=== PATIENT | male | born 1985 | race African-American/Black ===

== ENCOUNTER 2020-01-02 13:00 | Inpatient (IN) ==
[2020-01-02 14:25] LABS: ABS Eosinophils 0.2 10^3/ul (0-0.6); ABS Lymphocytes 3.1 10^3/ul (1.0-4.8); ABS Monocytes 1.1 10^3/ul (0-0.8); ABS Neutrophils 9.5 10^3/ul (1.5-7.7); Eosinophil % 1.2 %; Hematocrit 43 % (42-52); Hemoglobin 14.3 g/dL (14.0-18.0); Lymphocyte % 22.6 %; Mean Corpuscular HGB Conc 33 g/dL (31-36); Mean Corpuscular Hemoglobin 26 pg (27-31); Mean Corpuscular Volume 78 fL (80-94); Mean Platelet Volume 7.8 fL (7.4-10.4); Platelet Count 213 10^3/uL (150-450); Red Blood Count 5.48 10^6 /uL (4.18-5.48); Red Cell Distribution Width 15 % (10-15); White Blood Count 13.9 10^3/uL (3.5-10.8)
[2020-01-02 14:33] LABS: Urine Appearance Clear; Urine Bilirubin Negative (Negative); Urine Blood Negative (Negative); Urine Color Yellow; Urine Glucose Negative (Negative); Urine Ketones Negative (Negative); Urine Nitrite Negative (Negative); Urine Protein Negative (Negative); Urine Specific Gravity 1.004 (1.010-1.030); Urine Urobilinogen Negative (Negative)
[2020-01-02 14:53] LABS: ALT 20 U/L (7-52); AST 26 U/L (13-39); Albumin 4.9 g/dL (3.2-5.2); Albumin/Globulin Ratio 2.1 (1-3); Alkaline Phosphatase 51 U/L (34-104); Anion Gap 8 mmol/L (2-11); BUN/Creatinine Ratio 5.6 (8-20); Blood Urea Nitrogen 7 mg/dL (6-24); CO2 Carbon Dioxide 29 mmol/L (22-32); Calcium 10.3 mg/dL (8.6-10.3); Chloride 103 mmol/L (101-111); EGFR African American 81.2 (>60); EGFR Non-African American 67.1 (>60); Globulin 2.3 g/dL (2-4); Glucose 120 mg/dL (70-100); Potassium 3.7 mmol/L (3.5-5.0); Sodium 140 mmol/L (135-145); Total Protein 7.2 g/dL (6.4-8.9)
[2020-01-02 15:08] LABS: Urine Benzodiazepine Screen None Detected (None Detect); Urine Cannabinoids Screen None Detected (None Detect); Urine Opiates Screen None Detected (None Detect)
[2020-01-02 15:27] LABS: TSH Ultra Thyroid Stim Horm 2.87 mcIU/mL (0.34-5.60)
[2020-01-02 15:44] LABS: Acetaminophen < 15 mcg/mL; Alcohol, S < 10 mg/dL (<10); Salicylate < 2.50 mg/dL (<30)
[2020-01-02] MEDS ORDERED: Al Hydrox/Mg Hydrox/Simet LIQ 30 ML UDC PO PRN (16:55)
[2020-01-02] MEDS ORDERED: Albuterol HFA INHALER 8 gm MDI INH PRN (18:34)
[2020-01-03] MEDS ORDERED: Venlafaxine XR 75 mg PO SCH (09:00)
[2020-01-03] MEDS: Vitamin THERAPEUTIC TAB PO SCH (11:44)
[2020-01-03] MEDS: Venlafaxine XR 75 mg PO SCH (11:44)
[2020-01-03] MEDS: Nicotine GUM 4MG FRUIT FLAVOR PO PRN ×2 (17:55→20:34)
[2020-01-04] MEDS: Venlafaxine XR 75 mg PO SCH (08:48)
[2020-01-04] MEDS: Vitamin THERAPEUTIC TAB PO SCH (08:49)
[2020-01-04] MEDS: Nicotine GUM 4MG FRUIT FLAVOR PO PRN ×5 (08:51→18:24)
[2020-01-05] MEDS: Vitamin THERAPEUTIC TAB PO SCH (08:12)
[2020-01-05] MEDS: Venlafaxine XR 75 mg PO SCH (08:12)
[2020-01-05] MEDS: Nicotine GUM 4MG FRUIT FLAVOR PO PRN ×4 (08:14→16:06)
[2020-01-05 08:24] LABS: HDL Cholesterol 44.2 mg/dL
[2020-01-06] MEDS: Vitamin THERAPEUTIC TAB PO SCH (07:38)
[2020-01-06] MEDS: Venlafaxine XR 75 mg PO SCH (07:39)
[2020-01-06] MEDS: Nicotine GUM 4MG FRUIT FLAVOR PO PRN ×4 (07:40→21:03)
[2020-01-07] MEDS: Nicotine GUM 4MG FRUIT FLAVOR PO PRN ×3 (07:41→15:51)
[2020-01-07] MEDS: Vitamin THERAPEUTIC TAB PO SCH (08:47)
[2020-01-07] MEDS: Venlafaxine XR 75 mg PO SCH (08:48)
[2020-01-08] MEDS: Nicotine GUM 4MG FRUIT FLAVOR PO PRN ×5 (02:28→19:51)
[2020-01-08] MEDS: Vitamin THERAPEUTIC TAB PO SCH (08:17)
[2020-01-08] MEDS: Venlafaxine XR 75 mg PO SCH (08:18)
[2020-01-09 08:06] VITALS: BP 143/86
[2020-01-09] MEDS: Vitamin THERAPEUTIC TAB PO SCH (08:08)
[2020-01-09] MEDS: Venlafaxine XR 75 mg PO SCH (08:09)
[2020-01-09] MEDS: Nicotine GUM 4MG FRUIT FLAVOR PO PRN (09:06)
== END 2020-01-09 11:30 | disposition home or self-care (01) | DRG 750 ==
LOC: ED 13:00 → BSU 16:55
PROVIDERS: ADMIT Psychiatry & Neurology Psychiatry; ATTEND Psychiatry & Neurology Psychiatry

== ENCOUNTER 2022-01-20 16:45 | Inpatient (IN) ==
[2022-01-20] MEDS ORDERED: Dexamethasone IV 4 MG/ML VIAL 1 ml VIAL IV SLOW PU ONE (17:17)
[2022-01-20 17:32] LABS: ABS Eosinophils 0.4 10^3/ul (0-0.6); ABS Lymphocytes 3.6 10^3/ul (1.0-4.8); ABS Monocytes 1.1 10^3/ul (0-0.8); ABS Neutrophils 7.2 10^3/ul (1.5-7.7); Eosinophil % 3.2 %; Hematocrit 42 % (42-52); Hemoglobin 13.5 g/dL (14.0-18.0); Lymphocyte % 29.4 %; Mean Corpuscular HGB Conc 33 g/dL (31-36); Mean Corpuscular Hemoglobin 25 pg (27-31); Mean Corpuscular Volume 78 fL (80-94); Mean Platelet Volume 7.8 fL (7.4-10.4); Platelet Count 239 10^3/uL (150-450); Red Blood Count 5.36 10^6 /uL (4.18-5.48); Red Cell Distribution Width 16 % (10-15); White Blood Count 12.3 10^3/uL (3.5-10.8)
[2022-01-20 18:28] LABS: Albumin 4.4 g/dL (3.2-5.2); Calcium 9.6 mg/dL (8.6-10.3); Potassium 3.8 mmol/L (3.5-5.0); Total Bilirubin 0.5 mg/dL (0.2-1.0)
[2022-01-20 18:34] LABS: Albumin/Globulin Ratio 1.9 (1-3); Globulin 2.3 g/dL (2-4); Total Protein 6.7 g/dL (6.4-8.9); eGFR CKD-EPI 82.5 (>60)
[2022-01-20] MEDS ORDERED: CMCS: Venlafaxine 25 mg TAB (NF) PO SCH (21:00)
[2022-01-20] MEDS ORDERED: Famotidine IV 10 MG/ML 2 ml VIAL (20 mg) IV SLOW PU SCH (23:00)
[2022-01-20] MEDS: Dexamethasone IV 4 MG/ML VIAL 1 ml VIAL IV SLOW PU SCH (23:11)
[2022-01-21] MEDS: C1 Esterase Inhib (Human) 500 UNIT INJ IV ONE ×2 (02:43→03:06)
[2022-01-21 04:36] LABS: ABS Lymphocytes 0.8 10^3/ul (1.0-4.8); ABS Monocytes 0.2 10^3/ul (0-0.8); ABS Neutrophils 5.2 10^3/ul (1.5-7.7); Eosinophil % 0.2 %; Hematocrit 37 % (42-52); Lymphocyte % 13.5 %; Mean Corpuscular HGB Conc 32 g/dL (31-36); Mean Corpuscular Hemoglobin 25 pg (27-31); Mean Corpuscular Volume 77 fL (80-94); Mean Platelet Volume 7.6 fL (7.4-10.4); Nucleated Red Blood Cells % 0.1; Platelet Count 201 10^3/uL (150-450); Red Blood Count 4.88 10^6 /uL (4.18-5.48); Red Cell Distribution Width 15 % (10-15); White Blood Count 6.3 10^3/uL (3.5-10.8)
[2022-01-21 05:06] LABS: Calcium 9.4 mg/dL (8.6-10.3); Phosphorus 3.9 mg/dL (2.5-5.0); Potassium 4.5 mmol/L (3.5-5.0); eGFR CKD-EPI 100.7 (>60)
[2022-01-21] MEDS: Dexamethasone IV 4 MG/ML VIAL 1 ml VIAL IV SLOW PU SCH (05:14)
[2022-01-21] MEDS ORDERED: Dexamethasone IV 4 MG/ML VIAL 1 ml VIAL IV SLOW PU SCH (09:00)
[2022-01-21] MEDS ORDERED: Venlafaxine XR 75 mg PO SCH (09:00)
[2022-01-21 09:48] VITALS: BP 138/87
[2022-01-23 09:35] LABS: Complement C1q 13 mg/dL (12 - 22)
== END 2022-01-21 10:30 | disposition home or self-care (01) | DRG 811 ==
LOC: ED 16:45 → EDHOLD 18:17 → ICU 18:50
PROVIDERS: ADMIT Internal Medicine Critical Care Medicine; ATTEND Internal Medicine Critical Care Medicine